=== PATIENT | female | born 2000 | race Caucasian/White ===

== ENCOUNTER 2023-11-23 14:31 | Emergency (ER) | payer SELFPAY ==
[~2023-11-23] VITALS: Ht 154.9 cm; Wt 75.0 kg
[2023-11-23 14:38] VITALS: TEMP 98
[2023-11-23 16:11] LABS: STREP A NEGATIVE
[2023-11-23 16:28] LABS: BASO % 0.3 % (0.0-2.0); EOS # 0.2 K/mm3 (0.0-0.7); EOS % 1.7 % (0.0-4.0); GRAN # 7.7 K/mm3 (1.4-6.5); GRAN % 74.7 % (42.2-75.2); HEMOGLOBIN 11.7 g/dl (12.5-16.0); LYMPH # 1.7 K/mm3 (1.2-3.4); LYMPH % 16.8 % (20.0-51.0); MEAN CELL VOLUME 86 fl (80.0-100.0); MEAN CORPUSCULAR HEMOGLOBIN 29 pg (27-31); MEAN CORPUSCULAR HGB CONC 34 g/dl (33.0-37.0); MEAN PLATELET VOLUME 9.7 fl (7.4-10.4); MONO # 0.6 K/mm3 (0.1-0.6); MONO % 6.1 % (1.7-9.3); PLATELET COUNT 266 K/mm3 (130-400); RED BLOOD COUNT 4.06 M/mm3 (4.10-5.30); REDCELL DISTRIBUTION WIDTH-CV 14.2 % (11.5-14.5)
[2023-11-23 16:29] LABS: HEMATOCRIT 34.9 % (37.0-47.0)
[2023-11-23 16:42] LABS: ALBUMIN 3.1 g/dL (3.5-5.0); BILIRUBIN,TOTAL 0.3 mg/dL (0.2-1.2); CALCIUM 9.7 mg/dL (8.4-10.2); CREATININE, serum 0.67 mg/dL (0.57-1.11); POTASSIUM 3.8 mEq/L (3.5-4.5); TOTAL PROTEIN 6.5 g/dl (6.2-8.1)
[2023-11-23 18:00] VITALS: BP 94/64
[2023-11-23] MEDS ORDERED: Azithromycin 250 MG TAB PO ONE (18:30)
[2023-11-23] MEDS ORDERED: ZITHROMAX Z PA250 MG PO (18:31)
[2023-11-23 18:44] VITALS: PULSE 109
== END 2023-11-23 18:44 | disposition home or self-care (01) ==
LOC: COL.ER 14:31
PROVIDERS: Family Medicine
DX: O99.512 Diseases of the respiratory system complicating pregnancy, second trimester (principal); J40 Bronchitis, not specified as acute or chronic; O34.219 Maternal care for unspecified type scar from previous cesarean delivery; Z20.822 Contact with and (suspected) exposure to COVID-19; Z3A.17 17 weeks gestation of pregnancy